=== PATIENT | female | born 1965 | race Caucasian/White ===

== ENCOUNTER → 2016-08-14 | Outpatient (CLI) | payer OTHER | LOC: CAT | DX: Z13.6 Encounter for screening for cardiovascular disorders (principal) ==

== ENCOUNTER → 2016-08-14 | Outpatient (CLI) | payer OTHER | LOC: RAD 01:02 | DX: Z12.31 Encounter for screening mammogram for malignant neoplasm of breast (principal) ==

== ENCOUNTER → 2018-06-29 | Outpatient (CLI) | payer OTHER | LOC: RAD 10:11 | DX: Z12.31 Encounter for screening mammogram for malignant neoplasm of breast (principal) ==

== ENCOUNTER → 2020-01-31 | Outpatient (CLI) | payer OTHER | LOC: BC 10:45 | PROVIDERS: ATTEND Family Medicine | DX: Z12.31 Encounter for screening mammogram for malignant neoplasm of breast (principal) ==

== ENCOUNTER → 2020-10-24 | Outpatient (CLI) | payer OTHER | LOC: CAT 13:06 | PROVIDERS: ATTEND Family Medicine | DX: Z13.6 Encounter for screening for cardiovascular disorders (principal); I25.10 Atherosclerotic heart disease of native coronary artery without angina pectoris; E78.00 Pure hypercholesterolemia, unspecified ==

== ENCOUNTER → 2021-04-17 | Outpatient (CLI) | payer OTHER ==
--- NOTE | 2021-04-27 14:31 | PFR/MVV ---
[facility] [place] [address] PULMONARY FUNCTION MVV/REPORT Name: NATALIEFERNANDO KAMALJIT Room #: REG [facility]#: [id number] Admission: 04/17/21 Attend Phys: Guzman Guerrero MD Discharge: Date of : 69 Report #: [id number] THIS REPORT FOR: //name// >> SPIROMETRY: (BTPS) Height: 60.5 in cm Weight: 212 lbs kg Exam Date: 04/17/21 PRE-RX POST-RX PRED BEST %PRED BEST %PRED %CHG FVC LITERS . 2.83 . 3.54 . 125 . 3.20 . 113 . -10 FEV1 LITERS . 2.13 . 2.85 . 134 . 2.60 . 122 . -9 FEV1/FVC % . 75 . 80 . 107 . 81 . 109 . 1 CGU25-19% L/Sec . 2.59 . 3.42 . 132 . 3.29 . 127 . -4 PEF L/SEC . 5.47 . 5.30 . 97 . 5.23 . 96 . -1 FEF50/FIF50 UNITLESS . 3.23 . 3.68 . 114 . 4.03 . 125 . 10 MVV L/Min . 97 . . f 1/Min . . . >> LUNG VOLUMES: (BTPS) PRE-RX POST-RX PRED AVG %PRED AVG %PRED %CHG VC Liters . 2.83 . 4.09 . 144 . . . TLC Liters . 4.25 . 4.73 . 111 . . . RV Liters . 1.50 . 0.64 . 43 . . . RV/TLC % . 36 . 14 . 38 . . . FRC PL Liters . 1.80 . 1.02 . 57 . . . FRC N2 Liters . 1.80 . . . . . ERV Liters . 0.93 . 0.55 . 58 . . . IC Liters . 1.87 . 3.71 . 199 . . . >> DIFFUSION: DLCO ml/Min/mmHg . 24.2 . 27.4 . 113 . . . DL Mauro ml/Min/mmHg . 24.2 . 27.4 . 113 . . . DLCO/VA ml/Min/mmHg . 3.92 . 5.72 . 146 . . . VA Liters . . 4.79 . . . . COMMENTS: COMMENTS: >> RESISTANCE: [facility] [address] [address] PULMONARY FUNCTION MVV/REPORT Name: ABDULLAHI ESTRADA Room #: REG [facility].#: [id number] Admission: 04/17/21 Attend Phys: Guzman Guerrero MD Discharge: Date of : 69 Report #: [id number] PRE-RX PRED AVG %PRED Raw Total cmH20/L/Sec . . 6.35 . Raw Insp cmH20/L/Sec . . 3.69 . Raw Exp cmH20/L/Sec . . 4.90 . Raw cmH20/L/Sec . 2.26 . 5.67 . 521 Gaw L/Sec/cmH20 . 0.430 . 0.176 . 41 sRaw cmH20 Sec . 4.06 . 19.54 . 481 sGaw l/cmH20 Sec . 0.246 . 0.051 . 21 Vtq Liters . . 3.45 . # = OUTSIDE 95% CONFIDENCE INTERVAL CALIBRATION: PRED: 3.00 ACTUAL: EXP 3.01 INSP 3.02 [facility]-OL10-06 [facility]-05 N-1804-4 >> INTERPRETATION/IMPRESSION: DATE OF SERVICE: 04/17/2021 PULMONARY FUNCTION STUDIES ATTENDING PHYSICIAN: Dr. Guzman Guerrero. SPIROMETRY: FEV1 is 2.85 liters (134% predicted), FVC is 3.54 liters (125% predicted), FEV1/FVC ratio is 80%. Post-bronchodilator therapy with no significant change. LUNG VOLUMES: Total lung capacity is 4.73 liters (111%). RV is 0.64 liters (43% predicted). Diffusing capacity is 113%. IMPRESSION: Pulmonary function studies are essentially normal. There is no obstructive airflow defect. Total lung capacity is normal. Diffusing capacity is normal. <ELECTRONICALLY SIGNED> By: Kingsley Hopper MD 04/27/21 1431 Kingsley Hopper MD /nt
== END ==
LOC: PUL 09:04
PROVIDERS: ATTEND Internal Medicine Pulmonary Disease
DX: Z20.822 Contact with and (suspected) exposure to COVID-19 (principal); G47.33 Obstructive sleep apnea (adult) (pediatric); R06.02 Shortness of breath; M06.9 Rheumatoid arthritis, unspecified; Z99.89 Dependence on other enabling machines and devices